=== PATIENT | female | born 1965 | race Caucasian/White ===

== ENCOUNTER → 2017-02-15 | Outpatient (CLI) | payer BC, OTHER ==
[~2017-02-15] MED LIST: GASTROGRAFIN SOLUTION 30ML (Q9963) As Ordered ONE; ISOVUE-370 76% 100ML VIAL (Q9967) As Ordered ONE
--- NOTE | 2017-02-16 10:38 | REP ---
Clinical: Cirrhosis. Technique: Axial contrast enhanced images from the lung bases to the pubic symphysis using oral and 100 ml Isovue 370 intravenous contrast material with precontrast and delayed images of the abdomen as well as coronal and sagittal re-formations. Comparison: 12/07/2015. Findings: Lung bases are clear. Visualized heart and pericardium normal. The liver demonstrates a macronodular contour with subtle parenchymal heterogeneity and no focal hepatic lesion identified. Spleen, pancreas, bilateral adrenal glands and left kidney normal. 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 Cholelithiasis noted without CT evidence for acute cholecystitis. The enteric system is without obstruction or acute inflammatory process; the patient is status post appendectomy. Pelvis demonstrates normal bladder and evidence for prior hysterectomy. No ascites. No free air. No intraperitoneal or retroperitoneal adenopathy. No mass lesion. Musculoskeletal structures are intact. Impression: 1. Macronodular appearance the liver compatible with history of cirrhosis. No focal hepatic lesion identified. 2. Cholelithiasis. 3. 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
== END ==
LOC: M RAD 16:20
PROVIDERS: ATTEND Internal Medicine Infectious Disease
DX: K74.69 Other cirrhosis of liver (principal); K80.20 Calculus of gallbladder without cholecystitis without obstruction; Q63.2 Ectopic kidney
CPT/HCPCS: 74178; Q9963; Q9967

== ENCOUNTER → 2017-02-26 | Outpatient (REF) | payer OTHER | LOC: M SFHCWAGY 09:21 | PROVIDERS: ATTEND Nurse Practitioner Women's Health | DX: Z12.4 Encounter for screening for malignant neoplasm of cervix (principal) ==

== ENCOUNTER → 2017-02-26 | Outpatient (CLI) | payer BC, OTHER ==
--- NOTE | 2017-02-26 09:58 | REPMRS ---
Patient History The patient states she had a clinical breast exam in 03/12 Patient is postmenopausal and is nulliparous. No known family history of cancer. Taking estrogen for 16 years beginning at age 35. Digital Woman Screen Mammo: February 26, 2017 - Exam #: [id number] Bilateral CC and MLO view(s) were taken. Technologist: Erin Kelly, Technologist Prior study comparison: February 21, 2016, digital woman screen mammo performed at [facility]. February 16, 2015, digital woman screen mammo performed at [facility]. February 09, 2014, digital woman screen mammo performed at [facility]. FINDINGS: There are scattered fibroglandular densities. There has been no change in the appearance of the mammogram from the prior studies. There is a mild amount of scattered fibroglandular density which is fairly symmetric. There is no interval development of dominant mass, architectural distortion, or clustered microcalcification suggestive of malignancy. ASSESSMENT: BI-RADS/ACR category 1 mammogram. Negative. Recommendation Routine screening mammogram in 1 year (for women over age 40). This mammogram was interpreted with the aid of an FDA-approved computer-aided dectection system. Electronically Signed By: Salvador Mcconnell MD 02/26/17 0958
== END ==
LOC: M WHC 09:07
PROVIDERS: ATTEND Nurse Practitioner Women's Health
DX: Z12.31 Encounter for screening mammogram for malignant neoplasm of breast (principal); Z78.0 Asymptomatic menopausal state; Z92.0 Personal history of contraception

== ENCOUNTER → 2017-03-08 | Outpatient (CLI) | payer OTHER | LOC: M WHC 16:06 | PROVIDERS: ATTEND Nurse Practitioner Women's Health | DX: M85.89 Other specified disorders of bone density and structure, multiple sites (principal); Z78.0 Asymptomatic menopausal state ==

== ENCOUNTER → 2017-03-26 | Outpatient (REF) | payer OTHER ==
[2017-03-26 11:55] LABS: BASO # 0.1 K/mm3 (0.0-0.2); BASO % 1.7 % (0.0-1.0); EOS # 0.1 K/mm3 (0.0-0.50); LARGE UNSTAINED CELL # 0.1 K/mm3 (0.0-0.4); LARGE UNSTAINED CELL % 2.3 % (0.0-4.0); LYMPH % 26.5 % (24.0-44.0); MEAN CORPUSCULAR HEMOGLOBIN 28.3 pg (27.0-33.0); MEAN CORPUSCULAR HGB CONC 30.6 g/dl (32.0-36.5); MEAN CORPUSCULAR VOLUME 92.3 fl (80.0-96.0); MONO # 0.2 K/mm3 (0.0-0.8); MONO % 6.4 % (0.0-5.0); NEUTROPHILS # 2.1 K/mm3 (1.8-7.7); NEUTROPHILS % 60.2 % (36.0-66.0); PLATELET COUNT, AUTOMATED 185 k/mm3 (150-450); RED CELL DISTRIBUTION WIDTH 17.3 % (11.5-14.5); WHITE BLOOD COUNT 3.5 K/mm3 (4.0-10.0)
[2017-03-26 12:11] LABS: PERCENT SATURATION 8.2 % (13.2-37.4)
== END ==
LOC: M SFHCPLAZ 07:06
PROVIDERS: ATTEND Internal Medicine Infectious Disease
DX: D50.9 Iron deficiency anemia, unspecified (principal); R11.10 Vomiting, unspecified; I85.00 Esophageal varices without bleeding; R53.83 Other fatigue; R12 Heartburn; R10.13 Epigastric pain; E55.9 Vitamin D deficiency, unspecified

== ENCOUNTER → 2017-07-23 | Outpatient (CLI) | payer BC, OTHER ==
--- NOTE | 2017-07-23 17:40 | REP ---
MRA BRAIN WITHOUT CONTRAST: HISTORY: Aneurysm. COMPARISON: 05/24/2015. 3D TOF MR angiography was performed at the level of the makah of [place]. 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 Metal artifact is present. There is no recurrent aneurysm. There is no new aneurysm or arteriovenous malformation. There are no atherosclerotic lesions. Major intracranial vessels are patent. The vertebral arteries are equal in size. 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 There is no recurrent aneurysm. Signed by Jose David Edwards MD 07/24/2017 08:46 A
== END ==
LOC: M RAD 15:44
PROVIDERS: ATTEND Neurological Surgery
DX: I67.1 Cerebral aneurysm, nonruptured (principal)

== ENCOUNTER → 2017-08-22 | Outpatient (CLI) | payer BC, OTHER ==
--- NOTE | 2017-08-23 09:24 | REP ---
Clinical: History of cirrhosis. Technique: Real time mohan scale and color evaluation using linear high frequency transducer. Comparison: 09/08/2016. Findings: Liver demonstrates stable coarsened echotexture and subtle nodular contour consistent with history of cirrhosis. No focal hepatic lesion identified. Pancreas is normal in appearance, size and echogenicity. Cholelithiasis again identified and unchanged. No gallbladder wall thickening or pericholecystic fluid and no sonographic Oliva's sign or biliary ductal dilatation is appreciated. Common bile duct measures 4.6 mm diameter. The right kidney demonstrates mild cortical thinning without hydronephrosis or focal abnormality and measures 8.7 x 2.7 x 2.5 cm. No ascites. Impression: 1. Coarsened hepatic echotexture consistent with cirrhosis. No focal hepatic lesion identified. 2. Stable cholelithiasis. 3. Renal cortical thinning similar to prior examination and may reflect chronic medical renal disease. Signed by Kevon Duval MD 08/23/2017 09:15 A
== END ==
LOC: M RAD 07:42
PROVIDERS: ATTEND Internal Medicine Infectious Disease
DX: K74.69 Other cirrhosis of liver (principal)

== ENCOUNTER → 2018-02-18 | Outpatient (REF) | payer OTHER ==
[2018-02-18 12:06] LABS: APPEARANCE, URINE CLEAR (CLEAR); BACTERIA, URINE AUTO NEGATIVE (NEGATIVE); BILIRUBIN, URINE AUTO NEGATIVE (NEGATIVE); BLOOD, URINE BLOOD NEGATIVE (NEGATIVE); COLOR, URINE YELLOW (YELLOW); GLUCOSE, URINE (UA) AUTO NEGATIVE (NEGATIVE); KETONE, URINE AUTO NEGATIVE (NEGATIVE); LEUKOCYTE ESTERASE, URINE AUTO NEGATIVE (NEGATIVE); MUCUS, URINE SMALL (NEGATIVE); NITRITE, URINE AUTO NEGATIVE (NEGATIVE); PROTEIN, URINE AUTO 1+ mg/dL (NEGATIVE); RBC, URINE AUTO 0 /HPF (0-3); SPECIFIC GRAVITY URINE AUTO 1.029 (1.002-1.035); SQUAMOUS EPITHELIAL CELL UR AU 0 /HPF (0-6); UROBILINOGEN, URINE AUTO 0.2 mg/dL (0.0-2.0); WBC, URINE AUTO 0 /HPF (0-3)
[2018-02-18 13:36] LABS: CHLAMYDIA DNA AMPLIFICATION NEGATIVE (NEGATIVE); GC DNA AMPLIFICATION NEGATIVE (NEGATIVE)
== END ==
LOC: M SFHCPLAZ 11:57
DX: B20 Human immunodeficiency virus [HIV] disease (principal)

== ENCOUNTER → 2018-04-04 | Outpatient (CLI) | payer BC | LOC: M WHC 08:04 | DX: Z12.31 Encounter for screening mammogram for malignant neoplasm of breast (principal) | CPT/HCPCS: 77067 ==

== ENCOUNTER → 2018-04-04 | Outpatient (CLI) | payer BC, OTHER ==
[~2018-04-04] MED LIST changes: +GASTROGRAFIN SOLUTION 30ML (Q9963) As Ordered; -GASTROGRAFIN SOLUTION 30ML (Q9963) As Ordered ONE; +ISOVUE-370 76% 100ML VIAL (Q9967) As Ordered; -ISOVUE-370 76% 100ML VIAL (Q9967) As Ordered ONE
== END ==
LOC: M RAD 09:14
DX: K74.60 Unspecified cirrhosis of liver (principal); K29.70 Gastritis, unspecified, without bleeding
CPT/HCPCS: Q9963

== ENCOUNTER → 2018-06-11 | Outpatient (REF) | payer BC, OTHER | LOC: M SFHCPLAZ 17:07 | DX: K52.9 Noninfective gastroenteritis and colitis, unspecified (principal) | CPT/HCPCS: 87507 ==

== ENCOUNTER → 2018-06-11 | Outpatient (CLI) | payer BC, OTHER ==
[2018-06-11 12:14] LABS: BASO # 0.1 10^3/uL (0.0-0.2); EOS # 0.2 10^3/uL (0.0-0.50); EOS % 2.6 % (0.0-3.0); HEMATOCRIT 41.8 % (36.0-47.0); HEMOGLOBIN 13.8 g/dl (12.0-15.5); IMMATURE GRANULOCYTE % 0.2 % (0-3.0); LYMPH # 1.1 10^3/uL (1.5-4.5); LYMPH % 17.9 % (24.0-44.0); MEAN CORPUSCULAR HEMOGLOBIN 29.7 pg (27.0-33.0); MEAN CORPUSCULAR VOLUME 89.9 fl (80.0-96.0); MONO # 0.9 10^3/uL (0.0-0.8); MONO % 14.7 % (0.0-5.0); NEUTROPHILS # 3.9 10^3/uL (1.8-7.7); NEUTROPHILS % 63.6 % (36.0-66.0); PLATELET COUNT, AUTOMATED 201 10^3/uL (150-450); RED BLOOD COUNT 4.65 10^6/uL (4.00-5.40); RED CELL DISTRIBUTION WIDTH 14.1 % (11.5-14.5); WHITE BLOOD COUNT 6.1 10^3/uL (4.0-10.0)
[2018-06-11 12:59] LABS: ALBUMIN 3.2 GM/DL (3.2-5.2); ALBUMIN/GLOBULIN RATIO 0.94 (1.00-1.93); ALKALINE PHOSPHATASE 94 U/L (45-117); ALT/SGPT 39 U/L (12-78); AMYLASE 28 U/L (25-115); ANION GAP 9 MEQ/L (8-16); AST/SGOT 35 U/L (7-37); BILIRUBIN,TOTAL 0.9 MG/DL (0.2-1.0); BLOOD UREA NITROGEN 15 MG/DL (7-18); CALCIUM LEVEL 7.7 MG/DL (8.5-10.1); CARBON DIOXIDE LEVEL 26 MEQ/L (21-32); CHLORIDE LEVEL 103 MEQ/L (98-107); CREATININE FOR GFR 0.94 MG/DL (0.55-1.30); GLOMERULAR FILTRATION RATE > 60.0 (>51); GLUCOSE, FASTING 95 MG/DL (70-100); LIPASE 102 U/L (73-393); SODIUM LEVEL 138 MEQ/L (136-145); TOTAL PROTEIN 6.6 GM/DL (6.4-8.2)
== END ==
LOC: M LAB 11:42
DX: R10.84 Generalized abdominal pain (principal); K80.20 Calculus of gallbladder without cholecystitis without obstruction; K76.0 Fatty (change of) liver, not elsewhere classified
CPT/HCPCS: 76705

== ENCOUNTER → 2018-06-11 | Outpatient (REF) | payer OTHER | LOC: M SFHCPLAZ 11:19 | DX: K52.9 Noninfective gastroenteritis and colitis, unspecified (principal); R10.84 Generalized abdominal pain ==

== ENCOUNTER → 2019-01-13 | Outpatient (CLI) | payer BC, OTHER ==
--- NOTE | 2019-01-14 09:18 | REP ---
Clinical: Cirrhosis. Technique: Real time mohan scale and color evaluation using curved array transducer. Comparison: 06/11/2018. Findings: The liver demonstrates coarsened echotexture with nodular contour consistent with cirrhosis. No focal hepatic lesion identified. Pancreas is unremarkable. The gallbladder demonstrates cholelithiasis with mild gallbladder wall thickening. No pericholecystic fluid or sonographic Oliva's sign was elicited to suggest acute cholecystitis. No biliary ductal dilatation appreciated and the common bile duct measures 4.5 mm diameter. Right kidney measures 10.0 x 5.3 x 5.0 cm without hydronephrosis. No ascites. Impression: 1. Evidence for hepatocellular disease consistent with cirrhosis. 2. Cholelithiasis. Electronically Signed by Kevon Duval MD 01/14/2019 09:10 A
== END ==
LOC: M RAD 09:17
PROVIDERS: ATTEND Internal Medicine Infectious Disease
DX: K74.69 Other cirrhosis of liver (principal)

== ENCOUNTER → 2019-02-05 | Outpatient (CLI) | payer BC, OTHER ==
--- NOTE | 2019-02-05 10:43 | REP ---
MAXILLOFACIAL CT WITHOUT CONTRAST: HISTORY: Acute recurrent frontal sinusitis. The right frontal sinus is hypoplastic. Mucosal thickening is present in the right maxillary sinus. There is almost complete opacification of the right maxillary sinus. Minimal mucosal thickening is present in the right ethmoid, left maxillary and right sphenoid sinuses. The remaining sinuses are clear. Mucosal thickening involves the right osteomeatal unit. The left osteomeatal unit is patent. The middle and inferior nasal turbinates are partially paradoxical. There is ondina bullosa of the middle nasal turbinates. There is minimal deviation of the nasal septum to the right. A spur is present arising from the left side of the nasal septum. The cribriform plate, medial cortes of the orbits and optic canals are intact. The carotid canals form a segment of the posterolateral cortes of the sphenoid sinus. The sphenoid sinus septum inserts into the internal carotid canal wall. 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 IMPRESSION:Sinus mucosal thickening as described above. Electronically Signed by Jose David Edwards MD 02/05/2019 10:52 A
== END ==
LOC: M RAD 10:04
PROVIDERS: ATTEND Internal Medicine Infectious Disease
DX: J01.11 Acute recurrent frontal sinusitis (principal)

== ENCOUNTER → 2019-04-07 | Outpatient (REF) | payer OTHER ==
[2019-04-10 14:14] LABS: HPV HYBRID CAPTURE II Negative (Negative)
== END ==
LOC: M SFHCWAGY 08:22
PROVIDERS: ATTEND Nurse Practitioner Women's Health
DX: Z12.4 Encounter for screening for malignant neoplasm of cervix (principal)
CPT/HCPCS: 87624; G0123

== ENCOUNTER → 2019-04-07 | Outpatient (CLI) | payer BC ==
--- NOTE | 2019-04-07 09:01 | REPMRS ---
Patient History The patient states she had a clinical breast exam in 03/2019. Patient is postmenopausal and is nulliparous. No known family history of cancer. Took estrogen for 16 years beginning at age 35. Digital Woman Screen Mammo: April 07, 2019 - Exam #: [id number] Bilateral CC and MLO view(s) were taken. Technologist: Inez Nielson, Technologist Prior study comparison: April 04, 2018, digital woman screen mammo performed at [facility]. February 26, 2017, digital woman screen mammo performed at [facility]. February 21, 2016, digital woman screen mammo performed at [facility]. FINDINGS: There are scattered fibroglandular densities. There has been no change in the appearance of the mammogram from the prior studies. There is a mild amount of scattered fibroglandular density which is fairly symmetric. There is no interval development of dominant mass, architectural distortion, or clustered microcalcification suggestive of malignancy. 3-D tomosynthesis shows no additional findings. Assessment: BI-RADS/ACR category 1 mammogram. Negative Mammogram. Recommendation Routine screening mammogram of both breasts in 1 year (for women over age 40). This patient's Lifetime Breast Cancer RIsk is estimated at 7.3 %. This mammogram was interpreted with the aid of an FDA-approved computer-aided dectection system. Electronically Signed By: Salvador Mcconnell MD 04/07/19 [id number]
== END ==
LOC: M WHC 08:07
PROVIDERS: ATTEND Nurse Practitioner Women's Health
DX: Z12.31 Encounter for screening mammogram for malignant neoplasm of breast (principal); Z78.0 Asymptomatic menopausal state

== ENCOUNTER → 2019-07-08 | Outpatient (REF) | payer OTHER ==
[~2019-07-08] MED LIST changes: +ASPI81TA26 PO; +BIKT1TAB PO; +CARA1TAB6 PO; +D200CAP PO; +FLON1SPR; -GASTROGRAFIN SOLUTION 30ML (Q9963) As Ordered; -ISOVUE-370 76% 100ML VIAL (Q9967) As Ordered; +PROL60SO SC; +PROP10TA56 PO; +PROTPAK PO; +URSO300C3 PO; +calcium mag zinc PO
[2019-07-08 12:30] LABS: BASO # 0.1 10^3/uL (0.0-0.2); BASO % 1.4 % (0.0-1.0); EOS # 0.1 10^3/uL (0.0-0.50); EOS % 2.9 % (0.0-3.0); HEMATOCRIT 37.3 % (36.0-47.0); HEMOGLOBIN 11.9 g/dl (12.0-15.5); LYMPH # 1.3 10^3/uL (1.5-4.5); LYMPH % 30.3 % (24.0-44.0); MEAN CORPUSCULAR HEMOGLOBIN 29.6 pg (27.0-33.0); MEAN CORPUSCULAR HGB CONC 31.9 g/dl (32.0-36.5); MEAN CORPUSCULAR VOLUME 92.8 fl (80.0-96.0); MONO # 0.4 10^3/uL (0.0-0.8); MONO % 8.1 % (0.0-5.0); NEUTROPHILS # 2.5 10^3/uL (1.8-7.7); NEUTROPHILS % 56.8 % (36.0-66.0); PLATELET COUNT, AUTOMATED 190 10^3/uL (150-450); RED BLOOD COUNT 4.02 10^6/uL (4.00-5.40); WHITE BLOOD COUNT 4.4 10^3/uL (4.0-10.0)
[2019-07-08 12:43] LABS: ALBUMIN 3.9 GM/DL (3.2-5.2); ALT/SGPT 32 U/L (12-78); BILIRUBIN,TOTAL 0.6 MG/DL (0.2-1.0); BLOOD UREA NITROGEN 18 MG/DL (7-18); CARBON DIOXIDE LEVEL 28 MEQ/L (21-32); CHLORIDE LEVEL 108 MEQ/L (98-107); CHOLESTEROL LEVEL 274 MG/DL (<200); CHOLESTEROL RISK RATIO 3.341 (<5); FERRITIN 9 NG/ML (8-252); GLOMERULAR FILTRATION RATE > 60.0 (>51); GLUCOSE, FASTING 78 MG/DL (70-100); HDL CHOLESTEROL 82 MG/DL (>40); IRON (FE) 54 UG/DL (50-170); LDL CHOLESTEROL 177 MG/DL (<100); NON-HDL-C 192 MG/DL; PERCENT SATURATION 10.8 % (13.2-45.0); POTASSIUM SERUM 4.1 MEQ/L (3.5-5.1); SODIUM LEVEL 143 MEQ/L (136-145); TOTAL IRON BINDING CAPACITY 498 UG/DL (250-450); TOTAL PROTEIN 7.3 GM/DL (6.4-8.2); TRIGLYCERIDES LEVEL 73 MG/DL (<150)
[2019-07-08 12:48] LABS: INR 1.06; PROTHROMBIN TIME 13.6 SECONDS (11.8-14.0)
== END ==
LOC: M SFHCPLAZ 09:44
PROVIDERS: ATTEND Internal Medicine Infectious Disease
DX: B20 Human immunodeficiency virus [HIV] disease (principal); D50.0 Iron deficiency anemia secondary to blood loss (chronic); E78.00 Pure hypercholesterolemia, unspecified; K74.69 Other cirrhosis of liver

== ENCOUNTER 2019-07-14 10:06 | Day surgery (SDC) | payer BC, OTHER ==
[~2019-07-14] VITALS: Ht 158.8 cm; Wt 56.7 kg
[2019-07-14] MEDS ORDERED: METHYLENE BLUE 0.5% (5MG/ML) 10 ML AMP (PROVAYBLUE)(Q9968 PER 1MG) As Ordered ONE (10:13)
[2019-07-14] MEDS ORDERED: LIDOCAINE W/EPINEPHRINE 1% 20ML VIAL As Ordered ONE ×2 (10:14→12:05)
[2019-07-14] MEDS ORDERED: EPINEPHrine INJ 1 MG/ML 1ML AMP As Ordered ONE ×2 (10:14→12:03)
[2019-07-14] MEDS ORDERED: OXYMETAZOLINE NASAL SPRAY (AFRIN) As Ordered ONE (10:14)
[2019-07-14] MEDS ORDERED: MIDAZOLAM INJ 2 MG/2 ML VIAL (J2250) As Ordered ONE (10:26)
[2019-07-14] MEDS ORDERED: ROCURONIUM BROMIDE 50 MG/5 ML VIAL As Ordered ONE (10:26)
[2019-07-14] MEDS ORDERED: PROPOFOL 200 MG/20 ML VIAL As Ordered ONE (10:26)
[2019-07-14] MEDS ORDERED: ONDANSETRON 4MG/2ML VIAL (J2405) As Ordered ONE (10:26)
[2019-07-14] MEDS ORDERED: fentaNYL 250 MCG/5 ML INJECTION (J3010) As Ordered ONE (10:26)
[2019-07-14] MEDS ORDERED: dexameTHASONE 4 MG/ML 1ML VIAL (J1100) As Ordered ONE (10:26)
[2019-07-14] MEDS ORDERED: LIDOCAINE 2% INJ 100 MG/5 ML SDV (FOR ANES.) As Ordered ONE (10:27)
[2019-07-14] MEDS ORDERED: DOXY-350 PO (10:46)
[2019-07-14] MEDS ORDERED: PERCOCET PO (10:46)
[2019-07-14] MEDS ORDERED: CLINDAMYCIN 600 MG/50 ML PREMIX BAG As Ordered ONE (10:59)
[2019-07-14] MEDS ORDERED: CLINDAMYCIN 600 MG in APPROPRIATE DILUENT 1 EA IV ONE (11:00)
[2019-07-14] MEDS ORDERED: ePHEDrine SULFATE 25 MG/5 ML(5MG/ML) SYRINGE As Ordered ONE (11:19)
[2019-07-14] MEDS ORDERED: GLYCOPYRROLATE INJ 0.2 MG/ML 2 ML VIAL As Ordered ONE (11:29)
[2019-07-14] MEDS ORDERED: METOCLOPRAMIDE INJ 10MG/2ML VIAL (J2765) As Ordered ONE (11:45)
[2019-07-14] MEDS ORDERED: PHENYLephrine HCL 500 MCG/5 ML (100MCG/ML) SYRINGE (J2370) As Ordered ONE (11:46)
[2019-07-14] MEDS ORDERED: METOCLOPRAMIDE INJ 10MG/2ML VIAL (J2765) IV PRN (13:15)
[2019-07-14] MEDS ORDERED: PERCOCET 5MG/325MG TAB PO PRN ×2 (13:15→14:16)
[2019-07-14] MEDS ORDERED: ONDANSETRON 4MG/2ML VIAL (J2405) IV PRN (13:15)
[2019-07-14] MEDS ORDERED: fentaNYL 100 MCG/2 ML INJECTION (J3010) IV PRN (13:15)
[2019-07-14] MEDS ORDERED: LR 1,000 ML IV SCH (13:15)
[2019-07-14] MEDS ORDERED: MEPERIDINE INJ 25 MG/ML VIAL (J2175) IV PRN (13:15)
[2019-07-14] MEDS ORDERED: IBUPROFEN 800 MG TAB PO PRN (13:30)
[2019-07-14 13:50] VITALS: BP 129/72
--- NOTE | 2019-08-12 09:11 | RO ---
DATE OF OPERATION: 07/14/2019 PREOPERATIVE DIAGNOSES: Chronic sinusitis, deviated septum. POSTOPERATIVE DIAGNOSES: Chronic sinusitis, deviated septum. PROCEDURE: Bilateral endoscopic ethmoidectomy with maxillary antrostomy with septoplasty. SURGEON: Bnih Biggs MD DIRECTOR OF REVENUE CYCLE MANAGEMENT: ANESTHESIA: INDICATIONS: This is a 53-year-old who has symptoms of recurrent nasal congestion obstruction followed by cases of acute sinusitis. DESCRIPTION OF PROCEDURE: Satisfactory general endotracheal anesthesia administered. A pharyngeal pack placed. The nose prepared for surgery by placing cotton-soaked pledgets with Afrin solution into the nasal cavity bilaterally. 1% Xylocaine with 1:100,000 epinephrine used to inject the nasal septum. A Abdiel incision was made on the left side of the nose. A mucoperichondrial flap and envelope was created on the left side of the nasal septum and carried down to the junction of the bony and cartilaginous septum. This was then with an elevator, and an envelope was then created on the right side of the septum. A Jayesh scissors was used to make a cut high in the perpendicular plate in the midportion of the vomer, and a central segment of the bony septum was resected. Next, with the round knife on the Justin elevator, a strip of cartilage was resected from the floor of the nose, mobilizing the quadrilateral cartilage and creating a swinging door. Then, a central segment of cartilaginous septum was resected, preserving a 1 cm dorsal and caudal strut. Double-action rongeur was used to take down deflected portions of the perpendicular plate, as well. Finally, the maxillary crest spur was taken down after elevating mucoperiosteum off both sides of it with a chisel. A segment of the resected cartilage was morselized and placed back into the septal envelope. The incision was closed using an interrupted #5-0 chromic suture. Then, a #4-0 plain suture was placed in a [id number] fashion through the two leaves of mucoperichondrium to appose them. Completing the septum surgery, endoscopic surgery was started with the 0-degree telescope and the microdebrider as the primary instrument. The left side was operated on first. 1% Xylocaine with 1:100,000 epinephrine was used to inject the lateral nasal wall and the middle turbinate on the left. The uncinate process was first taken down with the microdebrider. The ethmoidal bulla visualized, perforated, and then resected, completely exposing the lamina papyracea. The posterior ethmoidal cells were entered through the ground lamella and the medium inferior quadrant and working posteriorly, the anterior lamella bone removed following the skull base lamina papyracea. The superior ethmoid cell was opened up into the dissection and the remnant uncinate process taken down. Finally, the natural maxillary sinus ostia was identified. It was cannulated and enlarged using combination side-biting and upbiting forceps. Adrenaline pledgets were placed in this side. An identical procedure was performed on the right. When removing the adrenaline, there was no significant bleeding. Sinu-Foam was placed into each ethmoid dissection. Pharyngeal pack was removed. The throat was suctioned. The patient was then awakened, extubated, and sent to recovery in satisfactory condition. She will be seen back in the office in 3 days.
== END 2019-07-14 14:26 | disposition home or self-care (01) ==
LOC: M SDC 10:06
PROVIDERS: ATTEND Specialist
DX: J34.2 Deviated nasal septum (principal); J32.0 Chronic maxillary sinusitis; B20 Human immunodeficiency virus [HIV] disease; E78.00 Pure hypercholesterolemia, unspecified; K74.69 Other cirrhosis of liver; I85.00 Esophageal varices without bleeding; K21.9 Gastro-esophageal reflux disease without esophagitis; D50.0 Iron deficiency anemia secondary to blood loss (chronic); M54.9 Dorsalgia, unspecified; M81.0 Age-related osteoporosis without current pathological fracture; Z88.1 Allergy status to other antibiotic agents; Z88.8 Allergy status to other drugs, medicaments and biological substances; Z79.899 Other long term (current) drug therapy; Z79.82 Long term (current) use of aspirin; Z90.710 Acquired absence of both cervix and uterus
CPT/HCPCS: 30520; 31255; 31256; 88300; 88305; J1100; J2250; J2370; J2405; J2765; J3010; Q9968

== ENCOUNTER → 2019-11-13 | Outpatient (REF) | payer OTHER ==
[~2019-11-13] MED LIST changes: +DOXY-350 PO; +PERCOCET PO
== END ==
LOC: M SFHCPLAZ 09:56
PROVIDERS: ATTEND Internal Medicine Infectious Disease
DX: J32.0 Chronic maxillary sinusitis (principal)

== ENCOUNTER → 2019-11-21 | Outpatient (CLI) | payer BC, OTHER ==
--- NOTE | 2019-11-21 08:37 | REPVR ---
PROCEDURE INFORMATION: Exam: CT Maxillofacial Without Contrast, Sinus Exam date and time: 11/21/2019 7:04 AM Age: 54 years old Clinical indication: Sinusitis; Type not specified; Additional info: Chronic max sinusitis TECHNIQUE: Imaging protocol: CT Maxillofacial without contrast. Focus on the sinuses. Radiation optimization: All CT scans at this facility use at least one of these dose optimization techniques: automated exposure control; mA and/or kV adjustment per patient size (includes targeted exams where dose is matched to clinical indication); or iterative reconstruction. COMPARISON: CT Maxilofacial w/out contrast 02/05/2019 10:12 AM FINDINGS: Frontal sinuses: Frontal sinuses are underdeveloped. Frontoethmoidal recesses are patent. No air-fluid levels. Ethmoid air cells: There is mild ethmoid mucosal thickening. No air-fluid levels. Sphenoid sinuses: There is moderate right sphenoid sinus mucosal thickening. No air-fluid levels. Maxillary sinuses: There are bilateral maxillary antrostomy changes. There is mucosal thickening along the floors of the maxillary sinuses. There is a small air-fluid level within the right maxillary sinus. Ostiomeatal units are patent. Orbits: Orbits are normal. Globes are unremarkable. Nasal cavity/Septum: There are turbinectomy changes. Vasculature: Left suprasellar endovascular coil material is noted. Stent material is present within the left cavernous carotid artery Soft tissues: Unremarkable. Bones/joints: Unremarkable. IMPRESSION: Sinus mucosal disease as described. Right maxillary sinusitis. Electronically signed by: Zohreh Butler On 11/21/2019 08:37:20 AM
== END ==
LOC: M RAD 06:57
PROVIDERS: ATTEND Internal Medicine Infectious Disease
DX: J32.0 Chronic maxillary sinusitis (principal)

== ENCOUNTER → 2020-01-12 | Outpatient (CLI) | payer BC, OTHER ==
[2020-01-12 13:51] LABS: INR 1.07; PROTHROMBIN TIME 13.6 SECONDS (11.8-14.0)
[2020-01-12 14:14] LABS: ALBUMIN 3.8 GM/DL (3.2-5.2); ALT/SGPT 39 U/L (12-78); BILIRUBIN,TOTAL 0.9 MG/DL (0.2-1.0); BLOOD UREA NITROGEN 10 MG/DL (7-18); CALCIUM LEVEL 8.8 MG/DL (8.5-10.1); CARBON DIOXIDE LEVEL 30 MEQ/L (21-32); CHLORIDE LEVEL 109 MEQ/L (98-107); CHOLESTEROL LEVEL 297 MG/DL (<200); CHOLESTEROL RISK RATIO 3.857 (<5); CREATININE FOR GFR 0.91 MG/DL (0.55-1.30); FERRITIN 52 NG/ML (8-252); GLOMERULAR FILTRATION RATE > 60.0 (>51); GLUCOSE, FASTING 82 MG/DL (70-100); HDL CHOLESTEROL 77 MG/DL (>40); IRON (FE) 118 UG/DL (50-170); LDL CHOLESTEROL 201 MG/DL (<100); NON-HDL-C 220 MG/DL; PERCENT SATURATION 31.7 % (13.2-45.0); SODIUM LEVEL 142 MEQ/L (136-145); TOTAL IRON BINDING CAPACITY 372 UG/DL (250-450); TRIGLYCERIDES LEVEL 93 MG/DL (<150)
[2020-01-15 00:08] LABS: % CD8 Pos Lymph 21.5 % (12.0-35.5); ABS Basophils 0.1 x10E3/uL (0.0-0.2); ABS Eosinophils 0.2 x10E3/uL (0.0-0.4); ABS Lymphs 1.3 x10E3/uL (0.7-3.1); ABS Monocytes 0.4 x10E3/uL (0.1-0.9); ABS Neutophils 3.6 x10E3/uL (1.4-7.0); Abs CD4 Helper 689 /uL (359-1519); Abs CD8 Suppres 280 /uL (109-897); CD4/CD8 Ratio 2.47 (0.92-3.72); Eosinophils 4 % (Not Estab.); HCT 42.1 % (34.0-46.6); HGB 14.6 g/dL (11.1-15.9); HIV-1 RNA PCR QUANT 2 LC550285 <20 copies/mL (.); Immature Grans 0 % (Not Estab.); Lymphocytes 23 % (Not Estab.); MCH 33.2 pg (26.6-33.0); MCHC 34.7 g/dL (31.5-35.7); MCV 96 fL (79-97); Monocytes 8 % (Not Estab.); Neutrophils 64 % (Not Estab.); Platelets 234 x10E3/uL (150-450); RDW 15.2 % (11.7-15.4); WBC 5.7 x10E3/uL (3.4-10.8)
== END ==
LOC: M PLALAB 10:50
PROVIDERS: ATTEND Internal Medicine Infectious Disease
DX: K74.69 Other cirrhosis of liver (principal); K29.90 Gastroduodenitis, unspecified, without bleeding; B20 Human immunodeficiency virus [HIV] disease

== ENCOUNTER → 2020-01-16 | Outpatient (CLI) | payer BC, OTHER ==
--- NOTE | 2020-01-16 15:51 | REPVR ---
PROCEDURE INFORMATION: Exam: CT Maxillofacial Without Contrast, Sinus Exam date and time: 01/16/2020 2:56 PM Age: 54 years old Clinical indication: Pain; Other: Sinus; Additional info: Chronic sphenoidal sinustitis TECHNIQUE: Imaging protocol: CT Maxillofacial without contrast. Focus on the sinuses. Radiation optimization: All CT scans at this facility use at least one of these dose optimization techniques: automated exposure control; mA and/or kV adjustment per patient size (includes targeted exams where dose is matched to clinical indication); or iterative reconstruction. COMPARISON: CT Maxilofacial w/out contrast 11/21/2019 7:11 AM FINDINGS: Frontal sinuses: The right frontal sinus absent. The left frontal sinus is hypoplastic but clear. Ethmoid air cells: There is partial opacification of the right ethmoid air cells. The left ethmoid air cells are clear. Partial ethmoidectomy surgery has been performed. Sphenoid sinuses: Trace residual mucosal thickening is noted in the right sphenoid sinus. The left sphenoid sinus is clear. Maxillary sinuses: Marked mucosal thickening is present in the right maxillary sinus, increased from the prior exam. There is a 13 mm mucous retention cyst in the left maxillary sinus. Previously noted mucosal thickening and mucous in the left maxillary sinus has resolved. Prior medial maxillary antrostomy surgery has been performed. Orbits: Unremarkable. Nasal cavity/Septum: There is partial resection of the middle turbinates, more pronounced on the right. Vasculature: Aneurysm coils are seen medial to the anterior left clinoid process. A stent is noted within the left cavernous and supraclinoid ICA. Soft tissues: Unremarkable. Bones/joints: Unremarkable. IMPRESSION: Chronic sinusitis as discussed above Electronically signed by: Ayad Gould On 01/16/2020 15:50:46 PM
== END ==
LOC: M RAD 14:46
PROVIDERS: ATTEND Specialist
DX: J32.3 Chronic sphenoidal sinusitis (principal); J34.1 Cyst and mucocele of nose and nasal sinus; J32.0 Chronic maxillary sinusitis

== ENCOUNTER → 2020-01-22 | Outpatient (REF) | payer OTHER | LOC: M LAB REF 11:12 | PROVIDERS: ATTEND Specialist | DX: J32.3 Chronic sphenoidal sinusitis (principal); J32.0 Chronic maxillary sinusitis ==

== ENCOUNTER → 2020-03-15 | Outpatient (REF) | payer OTHER | LOC: M SFHCPLAZ 13:00 | PROVIDERS: ATTEND Internal Medicine Infectious Disease | DX: J32.0 Chronic maxillary sinusitis (principal) ==

== ENCOUNTER → 2020-04-08 | Outpatient (CLI) | payer BC ==
--- NOTE | 2020-04-08 10:00 | REPMRS ---
Patient History The patient states she had a clinical breast exam in March 2020. Patient is postmenopausal and is nulliparous. Family history of kidney cancer at age 62 in father, lung cancer at age 61 in mother. Took estrogen for 16 years beginning at age 35. Digital Woman Screen Mammo: April 08, 2020 - Exam #: [id number] Bilateral CC and MLO view(s) were taken. Technologist: Madonna Jessica Technologist Prior study comparison: April 07, 2019, bilateral digital woman screen mammo performed at [facility]. April 04, 2018, digital woman screen mammo performed at [facility]. February 26, 2017, digital woman screen mammo performed at [facility]. FINDINGS: The breast tissue is almost entirely fat. The Volpara volumetric breast density category is: A. There has been no change in the appearance of the mammogram from the prior studies. There is no interval development of dominant mass, architectural distortion, or grouped microcalcification typical of malignancy. 3-D tomosynthesis shows no additional findings. Assessment: BI-RADS/ACR category 1 mammogram. Negative Mammogram. Recommendation Routine screening mammogram of both breasts in 1 year (for women over age 40). This patient's Lifetime Breast Cancer RIsk is estimated at 7.1 %. This mammogram was interpreted with the aid of an FDA-approved computer-aided dectection system. Electronically Signed By: Salvador Mcconnell MD 04/08/20 0959
== END ==
LOC: M WHC 08:40
PROVIDERS: ATTEND Nurse Practitioner Women's Health
DX: Z12.31 Encounter for screening mammogram for malignant neoplasm of breast (principal)

== ENCOUNTER → 2020-04-08 | Outpatient (REF) | payer OTHER | LOC: M SFHCWAGY 17:11 | PROVIDERS: ATTEND Nurse Practitioner Women's Health | DX: N95.2 Postmenopausal atrophic vaginitis (principal); Z12.4 Encounter for screening for malignant neoplasm of cervix ==

== ENCOUNTER → 2020-07-15 | Outpatient (CLI) | payer BC ==
--- NOTE | 2020-08-20 10:02 | REP ---
RIGHT UPPER QUADRANT SONOGRAPHY: HISTORY: Liver cirrhosis. COMPARISON: Sonography from 01/13/19. Comparison CT study from 04/04/18. FINDINGS: Scanning through the right upper quadrant of the abdomen demonstrates increased echogenicity in the liver consistent with fatty infiltration. The liver margins are micronodular. The liver is not enlarged overall. No focal liver lesions seen. There is mobile shadowing calcific material in the gallbladder consistent with cholelithiasis. The gallbladder is normal in size. The gallbladder wall is somewhat thickened at 0.5 cm. The common bile duct is normal measuring 0.5 cm. There is no evidence of ascites. The visualized pancreas is unremarkable. No right renal abnormality is noted. The right kidney measures 9.3 x 4.5 x 3.4 cm. IMPRESSION: 1. Cholelithiasis. 2. Micronodular liver contour and fatty infiltration of the liver. 3. Gallbladder wall thickening, otherwise negative. MTDD
== END ==
LOC: M WHC 07:20
PROVIDERS: ATTEND Internal Medicine Infectious Disease
DX: K76.9 Liver disease, unspecified (principal)

== ENCOUNTER → 2020-08-26 | Outpatient (REF) | payer BC, OTHER | LOC: M SFHCPLAZ 15:23 | PROVIDERS: ATTEND Internal Medicine Infectious Disease | DX: R05 Cough (principal) ==

== ENCOUNTER → 2020-08-31 | Outpatient (CLI) | payer BC, OTHER ==
--- NOTE | 2020-08-31 07:59 | REPVR ---
PROCEDURE INFORMATION: Exam: CT Maxillofacial Without Contrast, Sinus Exam date and time: 08/31/2020 7:26 AM Age: 54 years old Clinical indication: Maxilla pain; Prior surgery; Surgery date: 6+ months; Additional info: Chronic sinusitis TECHNIQUE: Imaging protocol: CT Maxillofacial without contrast. Focus on the sinuses. Radiation optimization: All CT scans at this facility use at least one of these dose optimization techniques: automated exposure control; mA and/or kV adjustment per patient size (includes targeted exams where dose is matched to clinical indication); or iterative reconstruction. COMPARISON: CT Maxilofacial w/out contrast 01/16/2020 3:04 PM FINDINGS: Frontal sinuses: Hypoplasia of the frontal sinuses. Ethmoid air cells: Mild mucosal thickening in the ethmoid sinuses. Sphenoid sinuses: Severe mucosal thickening in the right sphenoid sinus. Left sphenoid sinus is well aerated. Maxillary sinuses: Status post right maxillary antrostomy. Trace fluid in the right maxillary sinus. Severe mucosal thickening in the left maxillary sinus. Nasal cavity/Septum: Unremarkable. Orbital cavity: Orbits are normal. Globes are unremarkable. Bones/joints: Unremarkable. Soft tissues: Unremarkable. Dental: Multiple dental fillings with associated beam hardening artifact. Vasculature: Aneurysm coil in the left suprasellar region. IMPRESSION: 1. Severe mucosal thickening in the left maxillary and right sphenoid sinuses. New from prior. 2. Right maxillary sinus disease has resolved. 3. Status post right maxillary antrostomy. Electronically signed by: Crescencio Kam On 08/31/2020 07:58:54 AM
== END ==
LOC: M RAD 07:18
PROVIDERS: ATTEND Internal Medicine Infectious Disease
DX: J32.9 Chronic sinusitis, unspecified (principal); R51.9 Headache, unspecified

== ENCOUNTER → 2021-01-10 | Outpatient (REF) | payer OTHER ==
[2021-01-10 15:00] LABS: ALBUMIN 3.6 GM/DL (3.2-5.2); ALT/SGPT 31 U/L (12-78); BILIRUBIN,TOTAL 0.5 MG/DL (0.2-1.0); BLOOD UREA NITROGEN 14 MG/DL (7-18); CALCIUM LEVEL 9.5 MG/DL (8.5-10.1); CARBON DIOXIDE LEVEL 29 MEQ/L (21-32); CHLORIDE LEVEL 105 MEQ/L (98-107); CHOLESTEROL LEVEL 253 MG/DL (<200); CHOLESTEROL RISK RATIO 3.373 (<5); CREATININE FOR GFR 0.94 MG/DL (0.55-1.30); GLOMERULAR FILTRATION RATE > 60.0 (>51); GLUCOSE, FASTING 80 MG/DL (70-100); HDL CHOLESTEROL 75 MG/DL (>40); LDL CHOLESTEROL 165 MG/DL (<100); NON-HDL-C 178 MG/DL; POTASSIUM SERUM 4.1 MEQ/L (3.5-5.1); SODIUM LEVEL 142 MEQ/L (136-145); TRIGLYCERIDES LEVEL 63 MG/DL (<150)
[2021-01-10 15:10] LABS: INR 0.95; PROTHROMBIN TIME 12.9 SECONDS (12.5-14.3)
[2021-01-12 01:06] LABS: % CD8 Pos Lymph 20.8 % (12.0-35.5); %CD4 Pos Lymphs 49.9 % (30.8-58.5); ABS Basophils 0.1 x10E3/uL (0.0-0.2); ABS Eosinophils 0.1 x10E3/uL (0.0-0.4); ABS Lymphs 1.3 x10E3/uL (0.7-3.1); ABS Monocytes 0.5 x10E3/uL (0.1-0.9); ABS Neutophils 3.3 x10E3/uL (1.4-7.0); Abs CD4 Helper 649 /uL (359-1519); Abs CD8 Suppres 270 /uL (109-897); Eosinophils 1 % (Not Estab.); HCT 38.1 % (34.0-46.6); HGB 13.2 g/dL (11.1-15.9); HIV-1 RNA PCR QUANT 2 LC550285 <20 copies/mL (.); Immature Grans 0 % (Not Estab.); Lymphocytes 25 % (Not Estab.); MCH 31.7 pg (26.6-33.0); MCHC 34.6 g/dL (31.5-35.7); MCV 92 fL (79-97); Monocytes 9 % (Not Estab.); Neutrophils 64 % (Not Estab.); Platelets 236 x10E3/uL (150-450); RBC 4.16 x10E6/uL (3.77-5.28); RDW 12.7 % (11.7-15.4); WBC 5.2 x10E3/uL (3.4-10.8)
== END ==
LOC: M SFHCPLAZ 10:37
PROVIDERS: ATTEND Internal Medicine Infectious Disease
DX: B20 Human immunodeficiency virus [HIV] disease (principal); K74.69 Other cirrhosis of liver; E78.00 Pure hypercholesterolemia, unspecified

== ENCOUNTER → 2021-02-08 | Outpatient (REF) | payer OTHER | LOC: M SFHCPLAZ 12:39 | PROVIDERS: ATTEND Internal Medicine Infectious Disease | DX: J01.11 Acute recurrent frontal sinusitis (principal) ==

== ENCOUNTER → 2021-02-11 | Outpatient (REF) | payer OTHER | LOC: M LAB REF 11:31 | PROVIDERS: ATTEND Internal Medicine Infectious Disease | DX: J01.11 Acute recurrent frontal sinusitis (principal) ==

== ENCOUNTER → 2021-02-15 | Outpatient (CLI) | payer BC, OTHER ==
--- NOTE | 2021-02-15 11:09 | REP ---
INDICATION: CIRRHOSIS OF LIVER. COMPARISON: 07/15/2020 TECHNIQUE: Multiple sonographic images of the abdominal right upper quadrant. FINDINGS: There are gallbladder calculi, similar to the prior study. There is no gallbladder wall thickening or pericholecystic fluid. There is no intrahepatic or extrahepatic biliary duct dilatation. The common biliary duct measures up to 5.9 mm, upper normal. The hepatic parenchyma demonstrates coarsened echotexture compatible with the clinical history of cirrhosis. There are no hepatic masses or cysts. The visualized pancreatic parenchyma is unremarkable. The right kidney is normal size measuring 10.0 x 5.4 x 5.6 cm. There are no right renal solid or cystic masses. There is no right renal calculus or hydronephrosis. There is no abdominal right upper quadrant free fluid. IMPRESSION: Echogenic hepatic parenchyma compatible with the clinical diagnosis of cirrhosis. There are no hepatic masses or cysts. Cholelithiasis as previously. <Electronically signed by Thee Brown > 02/15/21 [id number]
== END ==
LOC: M RAD 08:57
PROVIDERS: ATTEND Internal Medicine Infectious Disease
DX: K74.69 Other cirrhosis of liver (principal)

== ENCOUNTER → 2021-03-24 | Outpatient (REF) | payer OTHER | LOC: M SFHCPLAZ 14:17 | PROVIDERS: ATTEND Internal Medicine Infectious Disease | DX: J32.0 Chronic maxillary sinusitis (principal); A49.01 Methicillin susceptible Staphylococcus aureus infection, unspecified site ==

== ENCOUNTER → 2021-04-19 | Outpatient (CLI) | payer BC, OTHER ==
--- NOTE | 2021-04-19 11:50 | REPMRS ---
Patient History The patient states she had a clinical breast exam in 03/2021. Patient is postmenopausal and is nulliparous. No known family history of cancer. Took estrogen for 16 years beginning at age 35. Patient states no breast complaints today. Patient has signed MRS History Sheet. Digital Woman Screen Mammo: April 19, 2021 - Exam #: [id number] Bilateral CC and MLO view(s) were taken. Technologist: Inez Nielson, Technologist Prior study comparison: April 08, 2020, bilateral digital woman screen mammo performed at [facility]. April 07, 2019, bilateral digital woman screen mammo performed at [facility]. April 04, 2018, digital woman screen mammo performed at [facility]. FINDINGS: There are scattered fibroglandular densities. The Volpara volumetric breast density category is:B. There has been no change in the appearance of the mammogram from the prior studies. There is a mild amount of scattered fibroglandular density which is fairly symmetric. There is no interval development of dominant mass, architectural distortion, or grouped microcalcification suggestive of malignancy. 3-D tomosynthesis shows no additional findings. Assessment: BI-RADS/ACR category 1 mammogram. Negative Mammogram. Recommendation Routine screening mammogram of both breasts in 1 year (for women over age 40). This patient's [facility] Lifetime Breast Cancer Risk is estimated at 7.0 %. This mammogram was interpreted with the aid of an FDA-approved computer-aided dectection system. Electronically Signed By: Salvador Mcconnell MD 04/19/21 1137
== END ==
LOC: M WHC 08:55
PROVIDERS: ATTEND Nurse Practitioner Women's Health
DX: Z12.31 Encounter for screening mammogram for malignant neoplasm of breast (principal); Z78.0 Asymptomatic menopausal state

== ENCOUNTER → 2021-04-19 | Outpatient (REF) | payer OTHER | LOC: M SFHCWAGY 13:11 | PROVIDERS: ATTEND Nurse Practitioner Women's Health | DX: Z12.72 Encounter for screening for malignant neoplasm of vagina (principal); N95.2 Postmenopausal atrophic vaginitis | CPT/HCPCS: 87624; G0123 ==

== ENCOUNTER → 2021-07-01 | Outpatient (CLI) | payer BC, OTHER ==
[2021-07-01 10:57] LABS: ALBUMIN 3.9 GM/DL (3.2-5.2); BILIRUBIN,TOTAL 0.5 MG/DL (0.2-1.0); CALCIUM LEVEL 8.9 MG/DL (8.5-10.1); CREATININE FOR GFR 1.03 MG/DL (0.55-1.30); GLOMERULAR FILTRATION RATE 59.4 (>51); POTASSIUM SERUM 4.4 MEQ/L (3.5-5.1); TOTAL PROTEIN 7.2 GM/DL (6.4-8.2)
[2021-07-02 23:11] LABS: %CD4 Pos Lymphs 51.3 % (30.8-58.5); ABS Basophils 0.1 x10E3/uL (0.0-0.2); ABS Eosinophils 0.2 x10E3/uL (0.0-0.4); ABS Lymphs 1.4 x10E3/uL (0.7-3.1); ABS Monocytes 0.5 x10E3/uL (0.1-0.9); ABS Neutophils 3.8 x10E3/uL (1.4-7.0); Abs CD4 Helper 718 /uL (359-1519); Abs CD8 Suppres 294 /uL (109-897); CD4/CD8 Ratio 2.44 (0.92-3.72); Eosinophils 3 % (Not Estab.); HCT 38.2 % (34.0-46.6); HIV-1 RNA PCR QUANT 2 LC550285 <20 copies/mL (.); Immature Grans 0 % (Not Estab.); Lymphocytes 23 % (Not Estab.); MCH 30.6 pg (26.6-33.0); MCV 90 fL (79-97); Monocytes 8 % (Not Estab.); Neutrophils 64 % (Not Estab.); Platelets 219 x10E3/uL (150-450); RBC 4.25 x10E6/uL (3.77-5.28); WBC 5.8 x10E3/uL (3.4-10.8)
== END ==
LOC: M PLALAB 07:19
PROVIDERS: ATTEND Internal Medicine Infectious Disease
DX: B20 Human immunodeficiency virus [HIV] disease (principal); K74.69 Other cirrhosis of liver

== ENCOUNTER → 2021-07-14 | Outpatient (REF) | payer BC, OTHER | LOC: M SFHCPLAZ 17:36 | PROVIDERS: ATTEND Physician Assistant | DX: J01.90 Acute sinusitis, unspecified (principal) ==

== ENCOUNTER → 2021-08-09 | Outpatient (REF) | payer OTHER | LOC: M SFHCPLAZ 12:46 | PROVIDERS: ATTEND Physician Assistant | DX: J02.9 Acute pharyngitis, unspecified (principal); R68.83 Chills (without fever) ==

== ENCOUNTER → 2021-08-15 | Outpatient (REF) | payer OTHER | LOC: M SFHCPLAZ 11:04 | PROVIDERS: ATTEND Internal Medicine Infectious Disease | DX: J01.11 Acute recurrent frontal sinusitis (principal) ==

== ENCOUNTER → 2021-08-29 | Outpatient (CLI) | payer BC, OTHER ==
--- NOTE | 2021-08-29 08:06 | REP ---
INDICATION: CIRRHOSIS OF LIVER COMPARISON: 07/15/2020 TECHNIQUE: Real time mohan scale ultrasound examination using curved array transducer. FINDINGS: Liver demonstrates heterogeneous echotexture consistent with underlying cirrhosis/hepatocellular disease. No focal hepatic lesion identified. Pancreas is normal in appearance by ultrasound. The gallbladder demonstrates few mobile gallstones without wall thickening or pericholecystic fluid. No biliary ductal dilatation is appreciated and the common bile duct measures 4.5 mm diameter. Right kidney is normal in reniform shape without hydronephrosis and measures 10.0 x 4.7 x 3.9 cm. No ascites in the visualized right upper quadrant. IMPRESSION: 1. Evidence for hepatocellular disease/cirrhosis without focal hepatic lesion identified by ultrasound. 2. Cholelithiasis. <Electronically signed by Kevon Duval > 08/29/21 0823
== END ==
LOC: M RAD 06:23
PROVIDERS: ATTEND Internal Medicine Infectious Disease
DX: K74.69 Other cirrhosis of liver (principal)

== ENCOUNTER → 2021-12-23 | Outpatient (CLI) | payer BC, OTHER | LOC: M PLALAB 11:12 | PROVIDERS: ATTEND Internal Medicine Gastroenterology | DX: K74.60 Unspecified cirrhosis of liver (principal); K44.9 Diaphragmatic hernia without obstruction or gangrene; K29.70 Gastritis, unspecified, without bleeding; K72.90 Hepatic failure, unspecified without coma; E83.42 Hypomagnesemia; E56.9 Vitamin deficiency, unspecified ==

== ENCOUNTER → 2021-12-23 | Outpatient (CLI) | payer BC, OTHER ==
[2021-12-23 14:11] LABS: APPEARANCE, URINE CLEAR (CLEAR); BACTERIA, URINE AUTO NEGATIVE (NEGATIVE); BILIRUBIN, URINE AUTO NEGATIVE (NEGATIVE); BLOOD, URINE BLOOD NEGATIVE (NEGATIVE); COLOR, URINE YELLOW (YELLOW); GLUCOSE, URINE (UA) AUTO NEGATIVE (NEGATIVE); KETONE, URINE AUTO NEGATIVE (NEGATIVE); LEUKOCYTE ESTERASE, URINE AUTO NEGATIVE (NEGATIVE); MUCUS, URINE SMALL (NEGATIVE); NITRITE, URINE AUTO NEGATIVE (NEGATIVE); PROTEIN, URINE AUTO NEGATIVE (NEGATIVE); RBC, URINE AUTO 0 /HPF (0-3); SPECIFIC GRAVITY URINE AUTO 1.021 (1.002-1.035); SQUAMOUS EPITHELIAL CELL UR AU 0 /HPF (0-6); UROBILINOGEN, URINE AUTO 0.2 mg/dL (0.0-2.0); WBC, URINE AUTO 0 /HPF (0-3)
[2021-12-23 14:39] LABS: ALBUMIN 3.8 GM/DL (3.2-5.2); ALT/SGPT 34 U/L (12-78); BILIRUBIN,TOTAL 0.6 MG/DL (0.2-1.0); BLOOD UREA NITROGEN 18 MG/DL (7-18); CALCIUM LEVEL 9.1 MG/DL (8.5-10.1); CARBON DIOXIDE LEVEL 27 MEQ/L (21-32); CHLORIDE LEVEL 107 MEQ/L (98-107); CHOLESTEROL LEVEL 256 MG/DL (<200); CHOLESTEROL RISK RATIO 3.413 (<5); CREATININE FOR GFR 0.88 MG/DL (0.55-1.30); GLOMERULAR FILTRATION RATE > 60.0 (>51); GLUCOSE, FASTING 75 MG/DL (70-100); HDL CHOLESTEROL 75 MG/DL (>40); LDL CHOLESTEROL 163 MG/DL (<100); NON-HDL-C 181 MG/DL; POTASSIUM SERUM 3.9 MEQ/L (3.5-5.1); SODIUM LEVEL 140 MEQ/L (136-145); TRIGLYCERIDES LEVEL 90 MG/DL (<150)
[2021-12-27 03:07] LABS: % CD8 Pos Lymph 18.3 % (12.0-35.5); ABS Basophils 0.1 x10E3/uL (0.0-0.2); ABS Eosinophils 0.1 x10E3/uL (0.0-0.4); ABS Lymphs 1.1 x10E3/uL (0.7-3.1); ABS Monocytes 0.5 x10E3/uL (0.1-0.9); ABS Neutophils 2.9 x10E3/uL (1.4-7.0); Abs CD4 Helper 605 /uL (359-1519); Abs CD8 Suppres 201 /uL (109-897); CD4/CD8 Ratio 3.01 (0.92-3.72); Eosinophils 2 % (Not Estab.); HCT 37.3 % (34.0-46.6); HGB 12.1 g/dL (11.1-15.9); HIV-1 RNA PCR QUANT 2 LC550285 <20 copies/mL (.); Immature Grans 0 % (Not Estab.); Lymphocytes 23 % (Not Estab.); MCH 29.9 pg (26.6-33.0); MCHC 32.4 g/dL (31.5-35.7); MCV 92 fL (79-97); Monocytes 10 % (Not Estab.); Neutrophils 64 % (Not Estab.); Platelets 194 x10E3/uL (150-450); RBC 4.05 x10E6/uL (3.77-5.28); RDW 13.3 % (11.7-15.4); WBC 4.6 x10E3/uL (3.4-10.8)
== END ==
LOC: M PLALAB 11:16
PROVIDERS: ATTEND Internal Medicine Infectious Disease
DX: B20 Human immunodeficiency virus [HIV] disease (principal); K74.69 Other cirrhosis of liver; E78.00 Pure hypercholesterolemia, unspecified

== ENCOUNTER → 2022-02-22 | Outpatient (CLI) | payer BC, OTHER ==
[~2022-02-22] MED LIST changes: +ISOVUE-370 76% 100ML VIAL As Ordered ONE
== END ==
LOC: M RAD 09:13
PROVIDERS: ATTEND Internal Medicine Infectious Disease
DX: K74.69 Other cirrhosis of liver (principal); K80.20 Calculus of gallbladder without cholecystitis without obstruction
CPT/HCPCS: 74178; Q9967

== ENCOUNTER → 2022-05-09 | Outpatient (CLI) | payer BC, OTHER ==
[~2022-05-09] MED LIST changes: -ISOVUE-370 76% 100ML VIAL As Ordered ONE
== END ==
LOC: M WHC 08:04
PROVIDERS: ATTEND Advanced Practice Midwife
DX: Z12.31 Encounter for screening mammogram for malignant neoplasm of breast (principal); Z53.9 Procedure and treatment not carried out, unspecified reason

== ENCOUNTER → 2022-05-09 | Outpatient (CLI) | payer BC, OTHER | LOC: M WHC 10:13 | PROVIDERS: ATTEND Advanced Practice Midwife | DX: Z12.31 Encounter for screening mammogram for malignant neoplasm of breast (principal) ==

== ENCOUNTER → 2022-05-11 | Outpatient (CLI) | payer BC, OTHER | LOC: M WHC 14:14 | PROVIDERS: ATTEND Advanced Practice Midwife | DX: Z13.820 Encounter for screening for osteoporosis (principal); M85.851 Other specified disorders of bone density and structure, right thigh; M85.852 Other specified disorders of bone density and structure, left thigh ==

== ENCOUNTER → 2022-07-28 | Outpatient (CLI) | payer OTHER ==
[2022-07-28 14:40] LABS: PLATELET COUNT, AUTOMATED 208 10^3/uL (150-450)
[2022-07-28 14:47] LABS: INR 1.01; PROTHROMBIN TIME 13.7 SECONDS (12.7-14.5)
[2022-07-28 14:48] LABS: PARTIAL THROMBOPLASTIN TIME 30.1 SECONDS (25.9-37.0)
== END ==
LOC: M PLALAB 10:07
PROVIDERS: ATTEND Physical Medicine & Rehabilitation
DX: M51.26 Other intervertebral disc displacement, lumbar region (principal)

== ENCOUNTER → 2022-07-28 | Outpatient (CLI) | payer OTHER | LOC: M PLARAD 10:14 | PROVIDERS: ATTEND Physical Medicine & Rehabilitation | DX: M47.896 Other spondylosis, lumbar region (principal) ==

== ENCOUNTER → 2022-08-04 | Outpatient (CLI) | payer BC, OTHER | LOC: M WHC 08:17 | PROVIDERS: ATTEND Internal Medicine Infectious Disease | DX: K74.69 Other cirrhosis of liver (principal); K76.0 Fatty (change of) liver, not elsewhere classified; K80.20 Calculus of gallbladder without cholecystitis without obstruction ==

== ENCOUNTER → 2023-01-15 | Outpatient (CLI) | payer BC, OTHER ==
[~2023-01-15] MED LIST changes: -DOXY-350 PO; +DOXY-444 PO
[2023-01-15 14:25] LABS: ALBUMIN 3.8 G/DL (3.2-5.2); ALKALINE PHOSPHATASE 125 U/L (46-116); ALT/SGPT 32 U/L (7.0-40); AST/SGOT 33 U/L (<34); BILIRUBIN,TOTAL 0.8 MG/DL (0.3-1.2); BLOOD UREA NITROGEN 18 MG/DL (9-23); CALCIUM LEVEL 9.4 MG/DL (8.5-10.1); CARBON DIOXIDE LEVEL 28 MMOL/L (20-31); CHLORIDE LEVEL 105 MMOL/L (98-107); CHOLESTEROL LEVEL 258 MG/DL (<200); CHOLESTEROL RISK RATIO 3.86 (<5); CREATININE FOR GFR 0.95 MG/DL (0.55-1.30); GLOMERULAR FILTRATION RATE > 60.0 (>51); GLUCOSE, FASTING 79 MG/DL (60-100); HDL CHOLESTEROL 66.8 MG/DL (>40); LDL CHOLESTEROL 172.4 MG/DL (<100); NON-HDL-C 191 MG/DL; SODIUM LEVEL 140 MMOL/L (136-145); TOTAL PROTEIN 6.9 G/DL (5.7-8.2); TRIGLYCERIDES LEVEL 94 MG/DL (<150)
[2023-01-17 02:07] LABS: % CD8 Pos Lymph 18.6 % (12.0-35.5); ABS Basophils 0.1 x10E3/uL (0.0-0.2); ABS Eosinophils 0.1 x10E3/uL (0.0-0.4); ABS Lymphs 1.3 x10E3/uL (0.7-3.1); ABS Monocytes 0.4 x10E3/uL (0.1-0.9); ABS Neutophils 4.1 x10E3/uL (1.4-7.0); Abs CD4 Helper 715 /uL (359-1519); Abs CD8 Suppres 242 /uL (109-897); CD4/CD8 Ratio 2.96 (0.92-3.72); Eosinophils 2 % (Not Estab.); HCT 38.3 % (34.0-46.6); HIV-1 RNA PCR QUANT 2 LC550285 <20 copies/mL (.); Immature Grans 0 % (Not Estab.); Lymphocytes 22 % (Not Estab.); MCH 30.3 pg (26.6-33.0); MCHC 33.9 g/dL (31.5-35.7); MCV 89 fL (79-97); Monocytes 7 % (Not Estab.); Neutrophils 68 % (Not Estab.); Platelets 221 x10E3/uL (150-450); RBC 4.29 x10E6/uL (3.77-5.28); RDW 13.7 % (11.7-15.4)
== END ==
LOC: M PLALAB 11:08
PROVIDERS: ATTEND Internal Medicine Infectious Disease
DX: B20 Human immunodeficiency virus [HIV] disease (principal); E78.00 Pure hypercholesterolemia, unspecified; K74.69 Other cirrhosis of liver

== ENCOUNTER → 2023-01-22 | Outpatient (CLI) | payer BC, OTHER ==
[2023-01-22 11:09] LABS: IMMUNOGLOBULIN A 159.3 MG/DL (40-350)
[2023-01-22 11:10] LABS: IMMUNOGLOBULIN M 42.9 MG/DL (50-300)
[2023-01-22 12:38] LABS: IMMUNOGLOBULIN E 5.2 IU/ML (0-378)
== END ==
LOC: M PLALAB 08:14
PROVIDERS: ATTEND Internal Medicine Infectious Disease
DX: J32.0 Chronic maxillary sinusitis (principal)

== ENCOUNTER → 2023-01-23 | Outpatient (CLI) | payer BC, OTHER | LOC: M WHC 07:06 | PROVIDERS: ATTEND Internal Medicine Infectious Disease | DX: K74.69 Other cirrhosis of liver (principal); K80.20 Calculus of gallbladder without cholecystitis without obstruction; N28.9 Disorder of kidney and ureter, unspecified ==

== ENCOUNTER → 2023-06-08 | Outpatient (REF) | payer BC, OTHER ==
[2023-06-08 18:34] LABS: ALBUMIN 3.9 G/DL (3.2-5.2); ALKALINE PHOSPHATASE 97 U/L (46-116); ALT/SGPT 33 U/L (7.0-40); AST/SGOT 25 U/L (<34); BILIRUBIN,TOTAL 0.6 MG/DL (0.3-1.2); BLOOD UREA NITROGEN 17 MG/DL (9-23); CALCIUM LEVEL 9.4 MG/DL (8.5-10.1); CARBON DIOXIDE LEVEL 28 MMOL/L (20-31); CHLORIDE LEVEL 106 MMOL/L (98-107); CREATININE FOR GFR 0.94 MG/DL (0.55-1.30); GLOMERULAR FILTRATION RATE > 60.0 (>51); GLUCOSE, FASTING 96 MG/DL (60-100); POTASSIUM SERUM 3.9 MMOL/L (3.5-5.1); SODIUM LEVEL 141 MMOL/L (136-145)
[2023-06-08 18:41] LABS: THYROID STIMULATING HORMONE 1.598 uIU/ML (0.55-4.78)
== END ==
LOC: M SFHCPLAZ 17:14
PROVIDERS: ATTEND Internal Medicine Infectious Disease
DX: B20 Human immunodeficiency virus [HIV] disease (principal); K74.69 Other cirrhosis of liver; R63.5 Abnormal weight gain

== ENCOUNTER → 2023-07-23 | Outpatient (CLI) | payer BC, OTHER | LOC: M RAD 08:32 | PROVIDERS: ATTEND Internal Medicine Infectious Disease | DX: K74.69 Other cirrhosis of liver (principal); K80.20 Calculus of gallbladder without cholecystitis without obstruction ==

== ENCOUNTER → 2024-01-01 | Outpatient (REF) | payer OTHER ==
[2024-01-01 13:34] LABS: INR 1.11
[2024-01-01 13:59] LABS: ALBUMIN 3.7 G/DL (3.2-5.2); ALKALINE PHOSPHATASE 93 U/L (46-116); ALT/SGPT 33 U/L (7.0-40); AST/SGOT 27 U/L (<34); BILIRUBIN,TOTAL 0.6 MG/DL (0.3-1.2); BLOOD UREA NITROGEN 15 MG/DL (9-23); CALCIUM LEVEL 9.5 MG/DL (8.5-10.1); CARBON DIOXIDE LEVEL 31 MMOL/L (20-31); CHLORIDE LEVEL 106 MMOL/L (98-107); CHOLESTEROL LEVEL 247 MG/DL (<200); CHOLESTEROL RISK RATIO 4.21 (<5); CREATININE FOR GFR 0.97 MG/DL (0.55-1.30); GLOMERULAR FILTRATION RATE > 60.0 (>51); GLUCOSE, FASTING 91 MG/DL (60-100); HDL CHOLESTEROL 58.6 MG/DL (>40); LDL CHOLESTEROL 166.6 MG/DL (<100); NON-HDL-C 188.4 MG/DL; POTASSIUM SERUM 4.5 MMOL/L (3.5-5.1); SODIUM LEVEL 142 MMOL/L (136-145); TRIGLYCERIDES LEVEL 109 MG/DL (<150)
[2024-01-02 15:09] LABS: % CD8 Pos Lymph 19.2 % (12.0-35.5); %CD4 Pos Lymphs 53.9 % (30.8-58.5); ABS Basophils 0.1 x10E3/uL (0.0-0.2); ABS Eosinophils 0.2 x10E3/uL (0.0-0.4); ABS Lymphs 1.5 x10E3/uL (0.7-3.1); ABS Monocytes 0.4 x10E3/uL (0.1-0.9); ABS Neutophils 2.9 x10E3/uL (1.4-7.0); Abs CD4 Helper 809 /uL (359-1519); Abs CD8 Suppres 288 /uL (109-897); CD4/CD8 Ratio 2.81 (0.92-3.72); Eosinophils 5 % (Not Estab.); HCT 39.6 % (34.0-46.6); HGB 13.1 g/dL (11.1-15.9); HIV-1 RNA PCR QUANT 2 LC550285 <20 copies/mL (.); Immature Grans 0 % (Not Estab.); Lymphocytes 29 % (Not Estab.); MCH 29.2 pg (26.6-33.0); MCHC 33.1 g/dL (31.5-35.7); MCV 88 fL (79-97); Monocytes 8 % (Not Estab.); Neutrophils 57 % (Not Estab.); Platelets 229 x10E3/uL (150-450); RBC 4.48 x10E6/uL (3.77-5.28); WBC 5.1 x10E3/uL (3.4-10.8)
== END ==
LOC: M SFHCCLAY 09:12
PROVIDERS: ATTEND Internal Medicine Infectious Disease
DX: K74.69 Other cirrhosis of liver (principal); B20 Human immunodeficiency virus [HIV] disease

== ENCOUNTER → 2024-01-14 | Outpatient (CLI) | payer OTHER ==
[2024-01-14 15:54] LABS: PLATELET COUNT, AUTOMATED 267 10^3/uL (150-450)
[2024-01-14 16:10] LABS: INR 1.07; PROTHROMBIN TIME 13.6 SECONDS (12.5-14.5)
[2024-01-14 16:11] LABS: PARTIAL THROMBOPLASTIN TIME 29.3 SECONDS (24.8-34.2)
== END ==
LOC: M PLALAB 12:04
PROVIDERS: ATTEND Physician Assistant
DX: Z01.818 Encounter for other preprocedural examination (principal)

== ENCOUNTER 2024-03-23 13:21 | Emergency (ER) | payer BC, OTHER ==
[~2024-03-23] VITALS: Ht 157.5 cm; Wt 63.9 kg
[2024-03-23] MEDS: NS 1,000 ML IV ONE (14:05)
[2024-03-23] MEDS: KETOROLAC 30 MG/ML 1ML VIAL IV ONE (14:05)
[2024-03-23 14:45] LABS: BASO # 0.1 10^3/uL (0.0-0.2); BASO % 0.9 % (0.0-1.0); EOS # 0.2 10^3/uL (0.0-0.5); EOS % 2.5 % (0.0-3.0); HEMATOCRIT 38.2 % (36.0-47.0); HEMOGLOBIN 12.5 g/dl (12.0-15.5); LYMPH # 1.6 10^3/uL (1.5-5.0); LYMPH % 24.3 % (24.0-44.0); MEAN CORPUSCULAR HEMOGLOBIN 29.8 pg (27.0-33.0); MEAN CORPUSCULAR HGB CONC 32.7 g/dl (32.0-36.5); MEAN CORPUSCULAR VOLUME 91.2 fl (80.0-96.0); MONO # 0.5 10^3/uL (0.0-0.8); MONO % 7.9 % (2.0-8.0); NEUTROPHILS # 4.1 10^3/uL (1.5-8.5); NEUTROPHILS % 64.2 % (36.0-66.0); PLATELET COUNT, AUTOMATED 213 10^3/uL (150-450); RED BLOOD COUNT 4.19 10^6/uL (4.00-5.40); WHITE BLOOD COUNT 6.4 10^3/uL (4.0-10.0)
[2024-03-23 15:06] LABS: LIPASE 33 U/L (12-53)
[2024-03-23 15:08] LABS: ALBUMIN 3.6 G/DL (3.2-5.2); ALKALINE PHOSPHATASE 114 U/L (46-116); ALT/SGPT 25 U/L (7.0-40); AST/SGOT 22 U/L (<34); BILIRUBIN,DIRECT 0.2 MG/DL (<0.4); BILIRUBIN,TOTAL 0.5 MG/DL (0.3-1.2); BLOOD UREA NITROGEN 14 MG/DL (9-23); CARBON DIOXIDE LEVEL 28 MMOL/L (20-31); CHLORIDE LEVEL 107 MMOL/L (98-107); CREATININE FOR GFR 0.97 MG/DL (0.55-1.30); GLOMERULAR FILTRATION RATE > 60.0 (>51); GLUCOSE, FASTING 96 MG/DL (60-100); SODIUM LEVEL 143 MMOL/L (136-145); TOTAL PROTEIN 6.5 G/DL (5.7-8.2)
[2024-03-23] MEDS ORDERED: ISOVUE-370 76% 100ML VIAL As Ordered ONE (15:17)
[2024-03-23] MEDS: ACETAMINOPHEN 500 MG TAB PO ONE (15:42)
[2024-03-23] MEDS: CIPROFLOXACIN 500MG TABLET PO ONE (16:25)
[2024-03-23] MEDS ORDERED: CIPR-249 PO (16:28)
[2024-03-23] MEDS ORDERED: METR-265 PO (16:28)
[2024-03-23 16:31] VITALS: BP 137/77; TEMP 96.7; O2SAT 100
[2024-03-23] MEDS: metroNIDAZOLE (FLAGYL) 500MG TABLET PO ONE (16:41)
== END 2024-03-23 16:48 | disposition home or self-care (01) ==
LOC: M ED 13:21
DX: K57.32 Diverticulitis of large intestine without perforation or abscess without bleeding (principal); K80.20 Calculus of gallbladder without cholecystitis without obstruction; B20 Human immunodeficiency virus [HIV] disease; K74.60 Unspecified cirrhosis of liver; K29.70 Gastritis, unspecified, without bleeding; Z79.82 Long term (current) use of aspirin; Z79.899 Other long term (current) drug therapy; Z88.0 Allergy status to penicillin; Z88.1 Allergy status to other antibiotic agents; Z88.8 Allergy status to other drugs, medicaments and biological substances
CPT/HCPCS: 74177; 80048; 80076; 81001; 83690; 85025; 87088; 87186; 96361; 96374; 99284; J1885; Q9967

== ENCOUNTER → 2024-04-25 | Outpatient (CLI) | payer OTHER ==
[~2024-04-25] MED LIST changes: +CIPR-249 PO; +DOXY-440 PO; -DOXY-444 PO; +METR-265 PO
== END ==
LOC: M PLARAD 14:11
PROVIDERS: ATTEND Physician Assistant
DX: M51.36 Other intervertebral disc degeneration, lumbar region (principal)

== ENCOUNTER → 2024-07-14 | Outpatient (CLI) | payer BC | LOC: M WHC 11:00 | PROVIDERS: ATTEND Advanced Practice Midwife | DX: M85.851 Other specified disorders of bone density and structure, right thigh (principal); M85.852 Other specified disorders of bone density and structure, left thigh ==

== ENCOUNTER → 2024-07-14 | Outpatient (CLI) | payer BC | LOC: M WHC 09:13 | PROVIDERS: ATTEND Advanced Practice Midwife | DX: Z12.31 Encounter for screening mammogram for malignant neoplasm of breast (principal); M81.0 Age-related osteoporosis without current pathological fracture; R92.313 Mammographic fatty tissue density, bilateral breasts ==

== ENCOUNTER → 2024-07-14 | Outpatient (CLI) | payer BC ==
[2024-07-14 12:47] LABS: ALBUMIN 3.9 G/DL (3.2-5.2); ALKALINE PHOSPHATASE 135 U/L (46-116); ALT/SGPT 44 U/L (7.0-40); AST/SGOT 36 U/L (<34); BILIRUBIN,TOTAL 0.9 MG/DL (0.3-1.2); BLOOD UREA NITROGEN 11 MG/DL (9-23); CALCIUM LEVEL 10.2 MG/DL (8.5-10.1); CARBON DIOXIDE LEVEL 29 MMOL/L (20-31); CHLORIDE LEVEL 103 MMOL/L (98-107); CHOLESTEROL LEVEL 192 MG/DL (<200); CHOLESTEROL RISK RATIO 3.11 (<5); CREATININE FOR GFR 1.01 MG/DL (0.55-1.30); GLOMERULAR FILTRATION RATE > 60.0 (>51); GLUCOSE, FASTING 91 MG/DL (60-100); HDL CHOLESTEROL 61.6 MG/DL (>40); LDL CHOLESTEROL 114.2 MG/DL (<100); NON-HDL-C 130.4 MG/DL; POTASSIUM SERUM 4.3 MMOL/L (3.5-5.1); SODIUM LEVEL 138 MMOL/L (136-145); TOTAL PROTEIN 7.4 G/DL (5.7-8.2); TRIGLYCERIDES LEVEL 81 MG/DL (<150)
[2024-07-16 18:27] LABS: % CD4 49 % (30-61); %CD8 17 % (12-42); ABSOLUTE CD4 CELLS 537 cells/uL (490-1740); ABSOLUTE CD8 CELLS 192 cells/uL (180-1170); ABSOLUTE LYMPHOCYTES 1104 cells/uL (850-3900)
[2024-07-17 18:22] LABS: HIV-1 RNA PCR QUANT 2 NOT DETECTED copies/mL (NOT DETECTED); HIV-1 RNA PCR QUANT 3 NOT DETECTED (NOT DETECTED)
== END ==
LOC: M PLALAB 11:04
PROVIDERS: ATTEND Internal Medicine Infectious Disease
DX: B20 Human immunodeficiency virus [HIV] disease (principal); E78.00 Pure hypercholesterolemia, unspecified; K74.69 Other cirrhosis of liver

== ENCOUNTER → 2024-07-14 | Outpatient (CLI) | payer BC ==
[2024-07-14 12:40] LABS: HEMATOCRIT 39.8 % (36.0-47.0); HEMOGLOBIN 12.8 g/dl (12.0-15.5); MEAN CORPUSCULAR HEMOGLOBIN 30.1 pg (27.0-33.0); MEAN CORPUSCULAR HGB CONC 32.2 g/dl (32.0-36.5); MEAN CORPUSCULAR VOLUME 93.6 fl (80.0-96.0); PLATELET COUNT, AUTOMATED 209 10^3/uL (150-450); RED BLOOD COUNT 4.25 10^6/uL (4.00-5.40); WHITE BLOOD COUNT 6.3 10^3/uL (4.0-10.0)
[2024-07-14 12:46] LABS: INR 1.04; PROTHROMBIN TIME 13.3 SECONDS (12.5-14.5)
[2024-07-14 12:47] LABS: ALKALINE PHOSPHATASE 135 U/L (46-116); ALT/SGPT 48 U/L (7.0-40); AST/SGOT 35 U/L (<34); BILIRUBIN,TOTAL 0.9 MG/DL (0.3-1.2); BLOOD UREA NITROGEN 11 MG/DL (9-23); CALCIUM LEVEL 10.2 MG/DL (8.5-10.1); CARBON DIOXIDE LEVEL 30 MMOL/L (20-31); CHLORIDE LEVEL 101 MMOL/L (98-107); CREATININE FOR GFR 1.02 MG/DL (0.55-1.30); GLOMERULAR FILTRATION RATE 59.5 (>51); GLUCOSE, FASTING 90 MG/DL (60-100); POTASSIUM SERUM 4.1 MMOL/L (3.5-5.1); SODIUM LEVEL 137 MMOL/L (136-145); TOTAL PROTEIN 7.3 G/DL (5.7-8.2)
== END ==
LOC: M PLALAB 11:02
PROVIDERS: ATTEND Internal Medicine Gastroenterology
DX: K74.60 Unspecified cirrhosis of liver (principal); I85.00 Esophageal varices without bleeding; R10.9 Unspecified abdominal pain; K44.9 Diaphragmatic hernia without obstruction or gangrene; K80.20 Calculus of gallbladder without cholecystitis without obstruction; K29.70 Gastritis, unspecified, without bleeding

== ENCOUNTER → 2024-09-05 | Outpatient (CLI) | payer BC | LOC: M WHC 08:18 | PROVIDERS: ATTEND Internal Medicine Infectious Disease | DX: K74.69 Other cirrhosis of liver (principal); K80.20 Calculus of gallbladder without cholecystitis without obstruction; K82.8 Other specified diseases of gallbladder ==

== ENCOUNTER → 2024-10-06 | Outpatient (REF) | payer OTHER | LOC: M SFHCPLAZ 13:02 | PROVIDERS: ATTEND Physician Assistant Medical | DX: J01.80 Other acute sinusitis (principal) ==

== ENCOUNTER → 2024-12-30 | Outpatient (CLI) | payer BC ==
[2024-12-30 15:02] LABS: ALBUMIN 3.6 G/DL (3.2-5.2); ALKALINE PHOSPHATASE 112 U/L (35-104); ALT/SGPT 31 U/L (7.0-40); AST/SGOT 28 U/L (<34); BILIRUBIN,TOTAL 0.4 MG/DL (0.3-1.2); BLOOD UREA NITROGEN 18 MG/DL (9-23); CALCIUM LEVEL 9.2 MG/DL (8.5-10.1); CARBON DIOXIDE LEVEL 30 MMOL/L (20-31); CHLORIDE LEVEL 105 MMOL/L (98-107); CREATININE FOR GFR 0.89 MG/DL (0.55-1.30); GLOMERULAR FILTRATION RATE > 60.0 (>51); GLUCOSE, FASTING 76 MG/DL (60-100); IRON (FE) 44 UG/DL (50-170); PERCENT SATURATION 9.8 % (13.2-45.0); POTASSIUM SERUM 4.1 MMOL/L (3.5-5.1); SODIUM LEVEL 145 MMOL/L (136-145); TOTAL IRON BINDING CAPACITY 451 UG/DL (250-425); TOTAL PROTEIN 6.9 G/DL (5.7-8.2)
[2024-12-30 15:04] LABS: CORTISOL AM 8.5 UG/DL (4.3-22.4)
[2024-12-31 14:12] LABS: % CD4+ LYMPHS 53.6 % (30.8-58.5); ABSOLUTE CD4 HELPER 911 /uL (359-1519); BASOPHILS 1 % (Not Estab.); BASOPHILS ABSOLUTE 0.1 x10E3/uL (0.0-0.2); EOSINOPHILS 4 % (Not Estab.); EOSINOPHILS ABSOLUTE 0.2 x10E3/uL (0.0-0.4); HCT 35.9 % (34.0-46.6); HGB 11.4 g/dL (11.1-15.9); LYMPHOCYTES 27 % (Not Estab.); LYMPHOCYTES ABSOLUTE 1.7 x10E3/uL (0.7-3.1); MCH 28.6 pg (26.6-33.0); MCHC 31.8 g/dL (31.5-35.7); MCV 90 fL (79-97); MONOCYTES 8 % (Not Estab.); MONOCYTES ABSOLUTE 0.5 x10E3/uL (0.1-0.9); NEUTROPHILS 60 % (Not Estab.); NEUTROPHILS ABSOLUTE 3.6 x10E3/uL (1.4-7.0); PLT 225 x10E3/uL (150-450); RBC 3.98 x10E6/uL (3.77-5.28); RDW 13.7 % (11.7-15.4); WBC 6.1 x10E3/uL (3.4-10.8)
== END ==
LOC: M PLALAB 12:22
PROVIDERS: ATTEND Internal Medicine Infectious Disease
DX: Z01.84 Encounter for antibody response examination (principal); M81.0 Age-related osteoporosis without current pathological fracture; B20 Human immunodeficiency virus [HIV] disease; K74.69 Other cirrhosis of liver

== ENCOUNTER → 2025-05-27 | Outpatient (REF) ==
[~2025-05-27] MED LIST changes: +DENO60SY2 SC; -PROL60SO SC
== END ==
LOC: M PLAIMG 10:42
PROVIDERS: ATTEND Internal Medicine
DX: M54.50 Low back pain, unspecified (principal)

== ENCOUNTER → 2025-06-26 | Outpatient (CLI) | payer OTHER | LOC: M PLARAD 10:06 | PROVIDERS: ATTEND Physician Assistant | DX: M47.27 Other spondylosis with radiculopathy, lumbosacral region (principal); M51.26 Other intervertebral disc displacement, lumbar region ==

== ENCOUNTER → 2025-08-03 | Outpatient (CLI) | payer BC ==
[2025-08-03 12:27] LABS: PLATELET COUNT, AUTOMATED 193 10^3/uL (150-450)
[2025-08-03 12:39] LABS: INR 0.97
[2025-08-03 12:59] LABS: ALT/SGPT 38 U/L (7.0-40); AST/SGOT 32 U/L (<34); CALCIUM LEVEL 9.5 MG/DL (8.5-10.1); CARBON DIOXIDE LEVEL 30 MMOL/L (20-31); CHLORIDE LEVEL 104 MMOL/L (98-107); CREATININE FOR GFR 0.95 MG/DL (0.55-1.30); GLOMERULAR FILTRATION RATE 69.5 (>51); POTASSIUM SERUM 4.4 MMOL/L (3.5-5.1); SODIUM LEVEL 144 MMOL/L (136-145)
[2025-08-03 15:06] LABS: HIV 1&2 SCREEN REACTIVE (NEGATIVE)
[2025-08-06 10:17] LABS: HIV 1 AB POSITIVE (NEGATIVE); HIV 2 AB NEGATIVE (NEGATIVE); HIV INTERPRETATION HIV-1 POSITIVE (NON REACT)
== END ==
LOC: M LAB 11:06 → M PLALAB 11:06
PROVIDERS: ATTEND Internal Medicine Gastroenterology
DX: D50.9 Iron deficiency anemia, unspecified (principal); K74.60 Unspecified cirrhosis of liver; Z21 Asymptomatic human immunodeficiency virus [HIV] infection status

== ENCOUNTER → 2025-08-03 | Outpatient (CLI) | payer BC ==
[2025-08-03 12:58] LABS: CHOLESTEROL LEVEL 193.0 MG/DL (<200); CHOLESTEROL RISK RATIO 3.19 (<5); LDL CHOLESTEROL 112.8 MG/DL (<100); NON-HDL-C 132.6 MG/DL; TRIGLYCERIDES LEVEL 99.0 MG/DL (<150)
[2025-08-05 12:07] LABS: HIV-1 RNA PCR QUANT 2 NOT DETECTED copies/mL (NOT DETECTED); HIV-1 RNA PCR QUANT 3 NOT DETECTED (NOT DETECTED)
[2025-08-05 16:07] LABS: % CD4 54 % (30-61); %CD8 19 % (12-42); ABSOLUTE CD4 CELLS 978 cells/uL (490-1740); ABSOLUTE CD8 CELLS 336 cells/uL (180-1170); ABSOLUTE LYMPHOCYTES 1814 cells/uL (850-3900); CD4 CD8 RATIO 2.91 (0.86-5.00)
== END ==
LOC: M LAB 11:03 → M PLALAB 11:03
PROVIDERS: ATTEND Internal Medicine Infectious Disease
DX: E78.00 Pure hypercholesterolemia, unspecified (principal); B20 Human immunodeficiency virus [HIV] disease

== ENCOUNTER → 2025-08-10 | Outpatient (CLI) | payer BC | LOC: M WHC 13:12 | PROVIDERS: ATTEND Advanced Practice Midwife | DX: Z12.31 Encounter for screening mammogram for malignant neoplasm of breast (principal); R92.313 Mammographic fatty tissue density, bilateral breasts ==

== ENCOUNTER → 2025-08-12 | Outpatient (CLI) | payer BC ==
[~2025-08-12] MED LIST changes: +ISOVUE-370 76% 100 ML VIAL As Ordered ONE
== END ==
LOC: M RAD 12:31
PROVIDERS: ATTEND Physician Assistant Medical
DX: R93.429 Abnormal radiologic findings on diagnostic imaging of unspecified kidney (principal); R93.2 Abnormal findings on diagnostic imaging of liver and biliary tract

== ENCOUNTER → 2025-08-21 | Outpatient (CLI) | payer BC ==
[~2025-08-21] MED LIST changes: -ISOVUE-370 76% 100 ML VIAL As Ordered ONE
[2025-08-21 14:57] LABS: BASO # 0.1 10^3/uL (0.0-0.2); BASO % 1.5 % (0.0-1.0); EOS # 0.2 10^3/uL (0.0-0.5); EOS % 2.4 % (0.0-3.0); LYMPH # 1.5 10^3/uL (1.5-5.0); LYMPH % 23.4 % (24.0-44.0); MONO # 0.5 10^3/uL (0.0-0.8); MONO % 7.6 % (2.0-8.0); NEUTROPHILS # 4.0 10^3/uL (1.5-8.5); NEUTROPHILS % 64.8 % (36.0-66.0); PLATELET COUNT, AUTOMATED 236 10^3/uL (150-450)
[2025-08-21 15:19] LABS: ALT/SGPT 27.0 U/L (7.0-40); AST/SGOT 24.0 U/L (<34); CALCIUM LEVEL 9.5 MG/DL (8.5-10.1); CARBON DIOXIDE LEVEL 29.0 MMOL/L (20-31); CHLORIDE LEVEL 103.0 MMOL/L (98-107); CREATININE FOR GFR 1.15 MG/DL (0.55-1.30); GLOMERULAR FILTRATION RATE 55.2 (>51); IRON (FE) 96.0 UG/DL (50-170); PERCENT SATURATION 25.3 % (13.2-45.0); POTASSIUM SERUM 4.1 MMOL/L (3.5-5.1); SODIUM LEVEL 139.0 MMOL/L (136-145)
== END ==
LOC: M PLALAB 08:21
PROVIDERS: ATTEND Internal Medicine Infectious Disease
DX: D50.0 Iron deficiency anemia secondary to blood loss (chronic) (principal); B20 Human immunodeficiency virus [HIV] disease